=== PATIENT | female | born 1980 | race Caucasian/White ===

== ENCOUNTER 2021-08-13 12:48 | Inpatient (IN) | payer OTHER ==
[~2021-08-13] VITALS: Ht 154.9 cm; Wt 115.0 kg
[2021-08-13] MEDS ORDERED: oxyCODONE/APAP 5/325 1 TAB TABLET PO ONE (13:00)
--- NOTE | 2021-08-13 13:10 | ED.ADGEN ---
Past Medical History Past Surgical History: Other Additional Past Surgical Histo: WISDOM TEETH General Adult EDM: Chief Complaint: UPPER EXTREMITY INJURY HPI: HPI: Patient is a 41 year old female coming in for right forearm pain after fall. 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 Happened just prior to arrival. Denies any other injuries. Is right-handed, no prior history of injuries to that wrist. Denies any numbness or paresthesias. Review of Systems: Review of Systems: All other systems within normal limits except for as noted in the HPI Current Medications: Current Medications Medications (Trade) Dose Ordered Sig/Cecille Start Time Stop Time Status Last Admin Dose Admin Oxycodone/ Acetaminophen (Percocet 5/325) 1 tab 1X ONCE 08/13/21 13:00 08/13/21 13:09 DC 08/13/21 13:14 1 TAB Allergies: Allergies: Allergies Coded Allergies Type Severity Reaction Last Updated Verified No Known Drug Allergies 08/13/21 No Physical Exam: PE: Constitutional: Well developed, well nourished, no acute distress, non-toxic appearance. [] HENT: Normocephalic, atraumatic, bilateral external ears normal, nose normal. [] Eyes: PERRLA, conjunctiva normal, no discharge. [] Neck: No rigidity, supple, no stridor. [] Cardiovascular: Regular rate and rhythm, brisk cap refill [] Lungs & Thorax: Non labored symmetric respirations, no tachypnea or respiratory distress [] Abdomen: Soft, nondistended. Skin: Warm, dry, no erythema, no rash. [] Back: Unremarkable Extremities: No deformities, range of motion grossly intact, no lower extremity edema. Tenderness and swelling of right mid forearm. Neurovascular intact distal, strong radial and ulnar pulse [] Neurologic: Alert and oriented X 3, no focal deficits noted. [] Psychologic: Affect normal, judgement normal, mood normal. [] Current Patient Data: Labs: Laboratory Tests Test 08/13/21 14:00 SARS-CoV-2 Antigen (Rapid) Negative (NEGATIVE) Vital Signs: Vital Signs Date Time Temp Pulse Resp B/P (MAP) Pulse Ox O2 Delivery O2 Flow Rate FiO2 08/13/21 13:57 80 148/74 (98) 98 Room Air 08/13/21 12:55 98.8 16 98.8 EKG: EKG: [] Heart Score: C/O Chest Pain: No Risk Factors: Risk Factors: DM, Current or recent (<one month) smoker, HTN, HLP, family hist ory of CAD, obesity. Risk Scores: Score 0 - 3: 2.5% MACE over next 6 weeks - Discharge Home Score 4 - 6: 20.3% MACE over next 6 weeks - Admit for Clinical Observation Score 7 - 10: 72.7% MACE over next 6 weeks - Early Invasive Strategies Radiology/Procedures: Radiology/Procedures: [facility] [address] [place] [address] IMAGING REPORT Signed PATIENT: MARCO GRANTCOUNT: [id number] : 1980 LOCATION: ER AGE: 41 SEX: F EXAM STATUS: REG ER ORD. PHYSICIAN: JANIE KELLY MD REASON: fall, arm pain PROCEDURE: FOREARM RIGHT Study: XR FOREARM_RIGHT 2 VIEWS Indication: Fall. Arm pain. Comparison: None. Findings: Acute, displaced and shortened fractures of both the radius and ulna at the dis josé diaphysis. The ulna fracture is comminuted. The distal fragments are displaced anteriorly by a shaft width. Shortening of both fractures by around 1.3 cm. No acute fracture seen at the wrist or elbow. Impression: Acute, displaced and shortened radial and ulnar diaphyseal fractures, as outlined above. Electronically signed by: KEYLA MIRELES MD (08/13/2021 1:39 PM) [id number] DICTATED and SIGNED BY: KEYLA MIRELES MD DATE: 08/13/21 [id number] [] Course & Med Decision Making: Course & Med Decision Making Pertinent Labs and Imaging studies reviewed. (See chart for details) Discussed fracture with Dr. Glies, will admit and take to the OR tomorrow [] Dragon Disclaimer: Christy Disclaimer: This electronic medical record was generated, in whole or in part, using a voice recognition dictation system. Departure Departure Disposition: ADMITTED INPATIENT Admitting Physician: [facility] Condition: STABLE JANIE KELLY MD Aug 13, 2021 13:10
--- NOTE | 2021-08-13 13:42 | RAD ---
Study: XR FOREARM_RIGHT 2 VIEWS Indication: Fall. Arm pain. Comparison: None. Findings: Acute, displaced and shortened fractures of both the radius and ulna at the distal diaphysis. The uln a fracture is comminuted. The distal fragments are displaced anteriorly by a shaft width. Shortening of both fractures by around 1.3 cm. No acute fracture seen at the wrist or elbow. Impression: Acute, displaced and shortened radial and ulnar diaphyseal fractures, as outlined above. Electronically signed by: KEYLA MIRELES MD (08/13/2021 1:39 PM) [id number]
[2021-08-13] MEDS ORDERED: ONDANSETRON PF 4 MG/2 ML VIAL. IVP PRN ×2 (14:30→15:30)
--- NOTE | 2021-08-13 15:28 | PDOC1 ---
History and Physical Date of Admission Date of Admission DATE: 08/13/21 TIME: 15:20 Identification/Chief Complaint Chief Complaint Right arm fracture Source Source: Patient History of Present Illness History of Present Illness Patient 41-year-old female past with PCOS, who presents to the ED with complaints of right arm pain since a fall she suffered this afternoon. States she had mechanical fall at the [facility] [employer] this afternoon landing on her right forearm. She reports pain 10/10 since that time. Associated nausea. In the ED x-ray showed acute, displaced radial and ulnar diaphyseal fractures. Consultation was placed to orthopedic surgery. Will admit patient for further medical management. Past Medical History Past Medical History PCOS Past Surgical History Past Surgical History [place] teeth removal Family History Family History Hypothyroidism Social History Smoke: No ALCOHOL: occassional Drugs: Marijuana Current Medications Current Medications Current Medications Oxycodone/ Acetaminophen (Percocet 5/325) 1 tab 1X ONCE PO Last administered on 08/13/21at 13:14; Start 08/13/21 at 13:00; Stop 08/13/21 at 13:09; Status DC Ondansetron HCl (Zofran) 4 mg PRN Q8HRS PRN IVP NAUSEA/VOMITING; Start 08/13/21 at 14:30; Stop 08/14/21 at 14:29 Fentanyl Citrate (Fentanyl 2ml Vial) 50 mcg PRN Q1HR PRN IVP PAIN; Start 08/13/21 at 14:30; Stop 08/14/21 at 14:29 Sodium Chloride 1,000 ml @ 75 mls/hr [id number] IV ; Start 08/13/21 at 23:59; Stop 08/14/21 at 23:58 Allergies Allergies: Coded Allergies: No Known Drug Allergies (Unverified , 08/13/21) ROS Review of System GENERAL: No history of weight change, weakness or fevers. SKIN: No bruising, hair changes or rashes. EYES: No blurred, double or loss of vision. NOSE AND THROAT: No history of nosebleeds, hoarseness or sore throat. HEART: Denies chest pain, denies palpitations. LUNGS: Denies cough, hemoptysis, wheezing or shortness of breath. GASTROINTESTINAL: Nausea. Denies vomiting, abdominal pain. GENITOURINARY: Denies dysuria, frequency, urgency, hematuria. NEUROLOGIC: Denies history of numbness, tingling, tremor or weakness. PSYCHIATRIC: Denies anxiety, denies depression. ENDOCRINE: No history of heat or cold intolerance, polyuria or polydipsia. EXTREMITIES: Right upper extremity pain and weakness. Pain with movement. Physical Exam Physical Exam General: Alert, Oriented X3, Cooperative, mild distress HEENT: PERRLA, EOMI Lungs: Clear to auscultation, Normal air movement Heart: RRR, no murmurs Cardiovascular: S1, S2 Abdomen: Normal bowel sounds, Soft, No tenderness Extremities: Obvious tenting noted to right forearm. Pulses intact no clubbing, No cyanosis Skin: Skin cool to touch. No rashes, No significant lesion Neuro: Normal speech, Normal tone, Sensation intact Psych/Mental Status: Mental status NL, Mood NL Vitals Vitals Vital Signs Date Time Temp Pulse Resp B/P (MAP) Pulse Ox O2 Delivery O2 Flow Rate FiO2 08/13/21 13:42 Room Air 08/13/21 12:55 98.8 78 16 162/73 (102) 96 98.8 Images Images PATIENT: MARCO RGANT MACCOUNT: [id number] : 1980 LOCATION: ER AGE: 41 SEX: F EXAM STATUS: REG ER ORD. PHYSICIAN: JANIE KELLY MD REASON: fall, arm pain PROCEDURE: FOREARM RIGHT Study: XR FOREARM_RIGHT 2 VIEWS Indication: Fall. Arm pain. Comparison: None. Findings: Acute, displaced and shortened fractures of both the radius and ulna at the distal diaphysis. The ulna fracture is comminuted. The distal fragments are displaced anteriorly by a shaft width. Shortening of both fractures by around 1.3 cm. No acute fracture seen at the wrist or elbow. Impression: Acute, displaced and shortened radial and ulnar diaphyseal fractures, as outlined above. VTE Prophylaxis Ordered VTE Prophylaxis Devices: No VTE Pharmacological Prophylaxi: Yes Assessment/Plan Assessment/Plan Acute displaced radial and ulnar diaphyseal fractures PCOS Plan: Consultations orthopedic surgery Discussed with Dr. Lawler, surgery will be tomorrow. Pain management FEN - Cardiac diet, then n.p.o. after midnight. PPX - Heparin FULL CODE Dispo - inpatient for above Patient names her (Roberto Hernandez) as surrogate decision-maker Justifications for Admission Other Justification TONY TRINH MD Aug 13, 2021 15:28
[2021-08-13] MEDS ORDERED: MAG HYDROX/ALUMINUM HYD/SIMETH 30 ML ORAL.SUSP PO PRN (15:30)
[2021-08-13] MEDS ORDERED: oxyCODONE/APAP 5/325 1 TAB TABLET PO PRN (15:30)
[2021-08-13] MEDS ORDERED: CALCIUM CARBONATE 500 MG TAB.CHEW PO PRN (15:30)
[2021-08-13] MEDS ORDERED: ACETAMINOPHEN 325 MG TABLET. PO PRN (15:30)
[2021-08-13] MEDS ORDERED: HYDROcodone/APAP 5/325MG 1 TAB TABLET PO PRN (15:30)
[2021-08-13] MEDS ORDERED: MAGNESIUM HYDROXIDE 2,400 MG/30 ML ORAL.SUSP. PO PRN (15:30)
[2021-08-13] MEDS ORDERED: ZOLPIDEM 5 MG TABLET. PO PRN (15:30)
[2021-08-13] MEDS: fentaNYL PF VIAL 100 MCG/2 ML VIAL IVP PRN (15:44)
[2021-08-13] MEDS: IV NORMAL SALINE 1000ML BAG 1,000 ML IV SCH (15:47)
[2021-08-13 16:20] VITALS: BP 160/79
[2021-08-13] MEDS ORDERED: FLU VACC QUAD 21-22 (6MOS+) PF 0.5 ML SYRINGE. VAX IM ONE (17:00)
[2021-08-13] MEDS: HYDROcodone/APAP 5/325MG 1 TAB TABLET PO PRN ×2 (17:33→22:26)
[2021-08-13 19:00] VITALS: BP 139/70
[2021-08-13] MEDS: HEPARIN for SUB-Q USE 5,000 UNIT/ML VIAL. SQ SCH (20:20)
[2021-08-13 22:41] VITALS: BP 131/62
[2021-08-14] VITALS (13 sets, daily range): BP systolic 117–171; BP diastolic 64–101
[2021-08-14] MEDS: fentaNYL PF VIAL 100 MCG/2 ML VIAL IVP PRN ×4 (02:34→17:42)
[2021-08-14] MEDS: HEPARIN for SUB-Q USE 5,000 UNIT/ML VIAL. SQ SCH ×3 (05:40→22:33)
[2021-08-14] MEDS: IV NORMAL SALINE 1000ML BAG 1,000 ML IV SCH ×2 (05:48→17:32)
[2021-08-14 07:34] LABS: BASO % 1 % (0-3); EOS # 0.3 x10^3/uL (0.0-0.7); EOS % 4 % (0-3); HEMATOCRIT 39.1 % (36.0-47.0); HEMOGLOBIN 13.1 g/dL (12.0-15.5); LYMPH # 3.2 x10^3/uL (1.0-4.8); LYMPH % 37 % (24-48); MEAN CORPUSCULAR HEMOGLOBIN 33 pg (25-35); MEAN CORPUSCULAR HGB CONC 34 g/dL (31-37); MEAN CORPUSCULAR VOLUME 98 fL (79-100); MONO # 0.7 x10^3/uL (0.0-1.1); MONO % 8 % (0-9); NEUT # 4.3 x10^3/uL (1.8-7.7); NEUT % 51 % (31-73); PLATELET COUNT 309 x10^3/uL (140-400); RED CELL DISTRIBUTION WIDTH 12.9 % (11.5-14.5); WHITE BLOOD COUNT 8.5 x10^3/uL (4.0-11.0)
[2021-08-14 07:36] LABS: CALCIUM 8.2 mg/dL (8.5-10.1); CREATININE 0.8 mg/dL (0.6-1.0); GFR 79.9; POTASSIUM 3.7 mmol/L (3.5-5.1)
[2021-08-14] MEDS: HYDROcodone/APAP 5/325MG 1 TAB TABLET PO PRN ×3 (08:12→19:32)
--- NOTE | 2021-08-14 10:21 | NUR ---
SW following. Discussed with RN, pt from home, room air, NPO, rapid COVID-19 negative. Ortho following - possible surgery today. RN advised no SW needs at this time. SW will continue to follow.
--- NOTE | 2021-08-14 14:04 | NUR ---
HEPARIN HELD DUE TO SURGERY TODAY AT 1600.
[2021-08-14] MEDS ORDERED: IV RINGERS,LACTATED 1000ML 1,000 ML IV SCH (14:15)
[2021-08-14] MEDS ORDERED: HYDROmorphone 2 MG/ML VIAL IVP PRN (14:15)
[2021-08-14] MEDS ORDERED: fentaNYL PF VIAL 100 MCG/2 ML VIAL IVP PRN (14:15)
[2021-08-14] MEDS ORDERED: BUPIVACAINE MPF 0.25% 30 ML VIAL. ONE (14:48)
--- NOTE | 2021-08-14 15:00 | NUR ---
Pt to surgery by bed accompanied by family.
[2021-08-14] MEDS ORDERED: fentaNYL PF VIAL 100 MCG/2 ML VIAL ONE ×2 (15:24→17:30)
[2021-08-14] MEDS ORDERED: PROPOFOL 10 MG/ML (20ML) VIAL. IV ONE (15:24)
[2021-08-14] MEDS ORDERED: LIDOCAINE 2% PF 5 ML VIAL. ONE (15:24)
[2021-08-14] MEDS ORDERED: ceFAZolin 2GM PREMIX 2 GM/50 ML BAG IV ONE (15:30)
--- NOTE | 2021-08-14 15:31 | HP ---
ADMIT DATE: 08/13/2021 CHIEF COMPLAINT: Fall with right arm pain. HISTORY OF PRESENT ILLNESS: The patient is a pleasant 41-year-old female who is a little overweight, but otherwise healthy. She fell at the [employer]. She states she was working there and tripped on some rocks and fell. She complains of right arm pain. We did some imaging. She has got a forearm fracture. The patient is going to surgery today. PAST MEDICAL HISTORY: Overweight, hyperlipidemia. ALLERGIES: None. FAMILY HISTORY: Diabetes. SOCIAL HISTORY: She does not drink, smoke or take drugs. She is . She also works at [employer]. MEDICATIONS: Reviewed, please refer to the MRAD. REVIEW OF SYSTEMS: GENERAL: No history of weight change, weakness or fevers. SKIN: No bruising, hair changes or rashes. EYES: No blurred, double or loss of vision. NOSE AND THROAT: No history of nosebleeds, hoarseness or sore throat. HEART: No history of palpitations, chest pain or shortness of breath on exertion. LUNGS: Denies cough, hemoptysis, wheezing or shortness of breath. GASTROINTESTINAL: Denies changes in appetite, nausea, vomiting, diarrhea or constipation. GENITOURINARY: No history of frequency, urgency, hesitancy or nocturia. NEUROLOGIC: Denies history of numbness, tingling, tremor or weakness. PSYCHIATRIC: No history of panic, anxiety or depression. ENDOCRINE: No history of heat or cold intolerance, polyuria or polydipsia. EXTREMITIES: She complains of right arm pain. PHYSICAL EXAMINATION: VITALS: Within normal limits and are stable. GENERAL: No apparent distress. Alert and oriented. HEENT: Normal cephalic atraumatic, external auditory canals are patent. EYES: Extraocular muscles are intact, pupils are equally round and reactive to light and accommodation. MUSCULOSKELETAL: Well developed, well nourished, good range of motion. ENDOCRINE: No thyromegaly was palpated. LYMPHATICS: No cervical chain or axillary nodes were noted. HEMATOPOIETIC: No bruising. NECK: Supple, no JVD, no thyromegaly was noted. LUNGS: Clear to auscultation in all lung alonso without rhonchi or wheezing. HEART: RRR, S1, S2 present. Peripheral pulses intact, no obvious murmurs were noted. ABDOMEN: Soft, nontender. Positive bowel sounds no organomegaly, normal bowel sounds. EXTREMITIES: Right arm in a cast. NEUROLOGIC: Normal speech, normal tone. A and O x 3, moves all extremities, no obvious focal deficits. PSYCHIATRIC: Normal affect, normal mood. Stable. SKIN: No ulcerations or rashes, good skin turgor, no jaundice. VASCULAR: Good capillary refill, neurovascular bundle appears to be intact. ASSESSMENT AND PLAN: Fall with right forearm fracture. The patient has been admitted. We have consulted orthopedic. She is going to surgery today. Postoperatively, she will need wound care, p.r.n. pain, home meds. DVT prophylaxis. Full code. KYAW DR: Raffaele TID: [id number]
[2021-08-14 15:42] LABS: U PREG PATIENT NEGATIVE (NEG)
[2021-08-14] MEDS ORDERED: SEVOFLURANE 61 TO 120 MINUTES. IH ONE (15:55)
[2021-08-14] MEDS ORDERED: DEXAMETHASONE SOD PHOS 4 MG/ML VIAL ONE (15:55)
[2021-08-14] MEDS ORDERED: KETOROLAC 30 MG/ML VIAL. ONE (15:55)
[2021-08-14] MEDS ORDERED: ONDANSETRON PF 4 MG/2 ML VIAL. ONE (15:55)
--- NOTE | 2021-08-14 16:57 | CONS ---
DATE OF CONSULTATION: 08/14/2021 REASON FOR CONSULTATION: Fracture of the radius and ulna. BRIEF HISTORY OF PRESENT ILLNESS: The patient is a 41-year-old right-hand dominant female who was working at the [employer] in [place], [place] when she was walking across some cobblestones tripped and fell awkwardly and upon landing noted that there was a snapping type of sensation with onset of severe pain. No prior history of injury. Thankfully no other injuries occurred. No numbness or tingling complaints as of today at this point. Her past medical and surgical history, medications, allergies, review of systems are all available and reviewed on the chart. PHYSICAL EXAMINATION: Today is limited due to the splint; however, distal neurovascular status is intact. Range of motion of the elbow is nonpainful. Digits of the hand are nonpainful with range of motion. X-rays show a comminuted fracture of the radius and ulna, midshaft. IMPRESSION: Comminuted fracture, radius and ulna, right. PLAN AT THIS POINT: The patient has been medically cleared for surgery. Therefore, she will undergo open reduction internal fixation of the right forearm fracture. We will get that done as soon as possible. She understands the risks, complications as well as benefits and expectations of surgery. Her mother is present during that discussion. RICKEY/NERY/MADAN DR: RICKEY/nelson TID: [id number]
--- NOTE | 2021-08-14 16:58 | PDOC4 ---
OPERATIVE NOTE Date: Date: Aug 14, 2021 Pre-Op Diagnosis: comminuted displaced fracture radius and ulna right Post-Op Diagnosis: Same Procedure Performed: ORIF right radius and ulna Surgeon: Estela Anesthesia Type: General Blood Loss: 20 cc Findings: See dictation Complications: None MARLEY ANGUIANO Jr., DO Aug 14, 2021 16:58
[2021-08-14] MEDS ORDERED: MORPHINE SULFATE 2 MG/ML INJ. ONE ×2 (17:53→18:22)
[2021-08-14] MEDS ORDERED: PROCHLORPERAZINE 10 MG/2 ML VIAL. ONE (17:53)
[2021-08-14] MEDS: PROCHLORPERAZINE 10 MG/2 ML VIAL. IVP PRN ×2 (17:58→18:27)
[2021-08-14] MEDS: MORPHINE SULFATE 2 MG/ML INJ. IVP PRN ×4 (17:59→18:30)
--- NOTE | 2021-08-14 18:37 | NUR ---
Arrived to unit by bed. C/o right arm pain. right hand fingers warm touch with good capillary refill. Right arm elevated on 2 pillows with ice pack. IVF's intact and infusing. Side rails up x's 2 with call light in reach. Family at bedside. Cont. monitor.
--- NOTE | 2021-08-14 19:03 | OP ---
DATE OF SURGERY: 08/14/2021 PREOPERATIVE DIAGNOSIS: Initial diagnosis of displaced comminuted fracture, right radius and right ulna. POSTOPERATIVE DIAGNOSIS: Initial diagnosis of displaced comminuted fracture, right radius and right ulna. PROCEDURE: Open reduction and internal fixation, right radius and right ulna. SURGEON: Reece Palmer Jr., DO POLICY CHANGE CLERK: Fernando. ANESTHESIA: General. TACK MAKER: None. ESTIMATED BLOOD LOSS: 20 mL, standard dictation for first line supervisor. DESCRIPTION OF PROCEDURE: The patient was taken to the operative suite, given a general anesthetic. Right upper extremity was then prepped and draped in a sterile fashion. After exsanguination, tourniquet was inflated. Incision was made directly over the area of the radius. This was taken through skin and subcutaneous tissues, carefully dissecting down through the superficial and subsequently into the deep layers. Neurovascular structures were protected and identified. After the finger dissection was taken down from this point distally and deep, this was noted to be completely exposure of the bone. Periosteal elevator was used to remove interposed soft tissue and after clamps were used to reduce this, a DC plate was then placed on the volar aspect of the wrist and after this was noted to be in good satisfactory alignment, 3 screw holes proximal and distal with 6 cortical areas available. The appropriate internal fixation was performed. This was done under standard AO technique with drilling and placing screws appropriately. Excellent purchase was noted of all screws. This was noted to be an anatomically reduced radius fracture. Second incision was made through skin and subcutaneous tissues, carefully dissecting through down to the ulna. This was identified and again reduced with clamps and held. Due to the nature of small bone, a smaller 1/3rd tubular plate was then affixed using standard AO technique to the ulna. Again, this appeared to be anatomically reduced after this was done, using standard AO technique. The wounds were then thoroughly irrigated, superficial tissues and skin was reapproximated. The tourniquet was deflated with good return of pulses and capillary refill. The patient was then taken from the operative bed to the postoperative bed, taken to the PACU in stable condition. SHARITA DR: Ezra TID: [id number]
[2021-08-14] MEDS: MORPHINE SULFATE 4 MG/ML INJ. IVP PRN (22:27)
[2021-08-15] MEDS: HYDROcodone/APAP 5/325MG 1 TAB TABLET PO PRN ×4 (01:48→14:21)
[2021-08-15 03:00] VITALS: BP 144/88
[2021-08-15] MEDS: MORPHINE SULFATE 4 MG/ML INJ. IVP PRN ×3 (03:48→11:54)
[2021-08-15] MEDS: HEPARIN for SUB-Q USE 5,000 UNIT/ML VIAL. SQ SCH ×2 (06:03→14:24)
[2021-08-15 07:00] VITALS: BP 126/96
[2021-08-15] MEDS ORDERED: OXYC1TAB15 PO (11:08)
--- NOTE | 2021-08-15 11:10 | SNU/HH DC ---
DISCHARGE WITH HOME HEALTH DISCHARGE INFORMATION: Condition on Discharge: Stable CODE STATUS: Code Status: Full HOME HEALTH: Face to Face: I certify this patient is under my care and that I, or a nurse practitioner or physician's assistant portfolio manager working with me, had a face to face encounter that meets the physician face to face encounter requirements with this patient on []. Medical Complications: Other (Right forearm fracture) Retirement For: Assess & Educate Safety RN For Eval/Treatment: Yes Physical Therapy For: Evalulation/Treatment Occupational Therapy For: Evaluation/Treatment Home Health Aide For: Self-care CASE FINISHING MACHINE ADJUSTER For: Community Resources Pt Meets Homebound Status: Fatigue w/ amb. POST DISCHARGE ORDERS: DIET AFTER DISCHARGE: Cardiac CERTIFICATION STATEMENT: Certification Statement: Certification Statement: Based on the above finding, I certify that this patient is confined to the home and needs intermittent assisted care, physical therapy and/or speech therapy, or continues to need occupational therapy.~ This patient is under my care, and I have initiated the establishment of the plan of care.~ This patient will be followed by myself or a community physician who will periodically review the plan of care. Home Meds Active Scripts Oxycodone/Apap 5-325 (PERCOCET 5-325 MG TABLET ) 1 Each Tablet, 1 TAB PO PRN Q4HRS PRN for MILD PAIN, 2ND CHOICE for 14 Days, #30 TAB Prov:ARELIS FOX III DO 08/15/21 ARELIS FOX III DO Aug 15, 2021 11:10
[2021-08-15 11:24] VITALS: BP 157/89
--- NOTE | 2021-08-15 11:36 | PDOC ---
[employer] PROGRESS NOTE Date of Service DOS: DATE: 08/15/21 TIME: 11:34 Chief Complaint Chief Complaint R diaphyseal fracture of radius and ulna,comminuted s/p ORIF Post operative Day 1 HLD Obesity History of Present Illness History of Present Illness 08/15/2021: Pt was seen and examined. Chart reviewed. Discussed with RN and pt. Pt reports good pain control. SpO2 98% while on 4L NC. SCD present BL. Vitals/I&O Vitals/I&O: Vital Signs Date Time Temp Pulse Resp B/P (MAP) Pulse Ox O2 Delivery O2 Flow Rate FiO2 08/15/21 11:24 98.3 95 20 157/89 (111) 97 Room Air 98.3 08/15/21 08:30 3.0 I & O 08/14/21 08/14/21 08/15/21 15:00 23:00 07:00 Intake Total 2600 ml 1325 ml Output Total 300 ml 570 ml Balance -300 ml 2030 ml 1325 ml Physical Exam Physical Exam: Eating breakfast 0.9% NS running at 75 mls/hr Appears pleasant, in NAD SCD present BL. General: Alert, Cooperative Heart: Regular rate, Normal S1, Normal S2 Lungs: Clear Abdomen: Soft, No hepatosplenomegaly Extremities: No clubbing, No cyanosis Skin: No significant lesion Labs Labs: Laboratory Tests Test 08/14/21 15:00 Urine Test Negative (NEG) Review of Systems Review of Systems: Post operative pain/fracture Fatigue Assessment and Plan Assessmemt and Plan R diaphyseal fracture of radius and ulna,comminuted s/p ORIF Post operative Day 1 HLD Obesity Plan: Appreciate input from subspecialist team (orthopedic surgery) DVT prophylaxis PRN pain meds (lortab 5 mg) and zofran Supportive care with milk of magnesia and Mylanta Encourage PO intake Home meds Trend labs Full Code Likely discharge today, pending subspecialist team input Comment Review of Relevant I have reviewed the following items roberto carlos (where applicable) has been applied. Medications: Current Medications Medications (Trade) Dose Ordered Sig/Cecille Route PRN Reason Start Time Stop Time Status Last Admin Dose Admin Fentanyl Citrate (Fentanyl 2ml Vial) 50 mcg PRN Q5MIN PRN IVP MODERATE PAIN 4-6 08/14/21 14:15 08/15/21 14:14 08/14/21 17:42 Morphine Sulfate (Morphine Sulfate) 1 mg PRN Q10MIN PRN IVP SEVERE PAIN 7-10 08/14/21 14:15 08/15/21 14:14 08/14/21 18:30 Ringer's Solution 1,000 ml @ 30 mls/hr Q24H IV 08/14/21 14:15 08/15/21 02:14 DC 08/14/21 15:45 Prochlorperazine Edisylate (Compazine) 5 mg PACU PRN PRN IVP NAUSEA, MRX1 08/14/21 14:15 08/15/21 14:14 08/14/21 18:27 Bupivacaine HCl (Sensorcaine Mpf 0.25%) 30 ml STK-MED ONCE .ROUTE 08/14/21 14:48 08/14/21 14:49 DC 08/14/21 16:11 Justifications for Admission General Conditions Other justification for admit: Right forearm fracture Other Justification ARELIS FOX III DO Aug 15, 2021 11:36
--- NOTE | 2021-08-15 12:19 | DS ---
DATE OF DISCHARGE: 08/15/2021 ADMITTING DIAGNOSES: Fall with right forearm fracture. DISCHARGE DIAGNOSES: 1. Postoperative open reduction and internal fixation of the right forearm fracture. 2. Overweight. 3. Hypertension. HOSPITAL COURSE: The patient is a pleasant, middle-aged female who presented with right forearm fracture. She was admitted. We consulted Orthopedics. She was taken for ORIF yesterday. Today, I saw and examined her. She is doing well. We plan to discharge. DISPOSITION: Home. ACTIVITY: As tolerated. DIET: Low sodium. MEDICATIONS: I faxed over a prescription for Percocet 5 mg q. 4 p.r.n. TOTAL TIME: 32 minutes. WILLOW/MARIBEL DR: Raffaele TID: [id number]
[2021-08-15 15:01] VITALS: BP 155/78
--- NOTE | 2021-08-15 17:17 | NUR ---
Patient discharge home with self care today via wheelchair, accompanied by aid and spouse. Patient is stable, IV removed, and discharge paperwork given to patient. Patient verbalized understanding of followup and discharge instruction.
[2021-08-16] MEDS ORDERED: HYDR-2769 PO (07:29)
== END 2021-08-15 17:19 | disposition home or self-care (01) | DRG 511 ==
LOC: ER 12:48 → 4 NORTH 14:00
PROVIDERS: ADMIT Family Medicine; ATTEND Family Medicine
PROC: 0PSK04Z Reposition Right Ulna with Internal Fixation Device, Open Approach (ICD-10-PCS; 2021-08-14)
PROC: 0PSH04Z Reposition Right Radius with Internal Fixation Device, Open Approach (ICD-10-PCS; principal; 2021-08-14 15:00)
DX: S59.091A Other physeal fracture of lower end of ulna, right arm, initial encounter for closed fracture (principal); Z68.42 Body mass index [BMI] 45.0-49.9, adult; E28.2 Polycystic ovarian syndrome; E66.9 Obesity, unspecified; E78.5 Hyperlipidemia, unspecified; I10 Essential (primary) hypertension; W01.0XXA Fall on same level from slipping, tripping and stumbling without subsequent striking against object, initial encounter; Z83.3 Family history of diabetes mellitus; Y93.01 Activity, walking, marching and hiking; Z20.822 Contact with and (suspected) exposure to COVID-19; Y93.89 Activity, other specified; Y92.89 Other specified places as the place of occurrence of the external cause; Y99.8 Other external cause status
CPT/HCPCS: 36415; 73090; 76000; 80048; 81025; 85025; 87426; 90471; 90686; A4565; A4930; A6402; A6449; C1713; J0690; J0780; J1100; J1644; J1885; J2270; J2405; J2704; J3010; J3490; J7030; J7120; U0003; U0005; 99285-25; G0378